=== PATIENT | female | born 1950 | race Two or more races ===

== ENCOUNTER 2023-12-23 13:37 | Emergency (ER) | payer SELFPAY ==
[~2023-12-23] VITALS: Ht 160 cm; Wt 84.3 kg
[2023-12-23 13:56] LABS: Urine Bacteria None Seen /hpf (None Seen)
[2023-12-23 14:11] LABS: Urine Blood Negative /uL (Negative); Urine Clarity Clear (Clear); Urine Color Yellow (Yellow); Urine Protein, UAD Negative (Negative); Urine Specific Gravity 1.025 (1.001-1.035); Urine Urobilinogen Normal (Negative); Urine WBC 3 /hpf (0 - 5); Urine pH 5.5 (5.0-9.0)
[2023-12-23 14:16] LABS: Basophils # (auto) 0.1 10 ^3/uL (0-0.2); Basophils % (auto) 0.6 % (0.0-2.0); Eosinophils # (auto) 0.1 10 ^3/uL (0-0.8); Eosinophils % (auto) 1.2 % (0.0-7.0); Hematocrit 41.6 % (36.0-46.0); Lymphocytes # (auto) 2.9 10 ^3/uL (0.4-5.4); Lymphocytes % (auto) 32.1 % (10.0-50.0); Mean Corpuscular Hemoglobin 28.8 pg (28.0-32.0); Mean Corpuscular Hgb Conc. 33.7 g/dL (32.0-36.0); Mean Corpuscular Volume 85.4 fL (80.0-100.0); Monocytes # (auto) 0.8 10 ^3/uL (0-1.3); Monocytes % (auto) 8.9 % (0.0-12.0); Neutrophils # (auto) 5.2 10 ^3/uL (1.6-8.6); Neutrophils % (auto) 57.2 % (37.0-80.0); Red Blood Cells 4.88 10^6/uL (4.0-5.20); Red Cell Distribution Width 16.9 % (11.8-14.3); White Blood Cell 9.1 10^3/uL (4.4-10.8)
[2023-12-23] MEDS: ACETAMINOPHEN 325 MG TAB PO ONE (14:23)
[2023-12-23] MEDS: KETOROLAC TROMETH 30 MG/ML 1ML VIAL IM ONE (14:23)
[2023-12-23] MEDS: LOPERAMIDE HCL 2 MG CAP/TAB PO ONE (14:23)
[2023-12-23] MEDS: LIDOCAINE VISCOUS 2% 15ML UD PO ONE (14:23)
[2023-12-23] MEDS: PANTOPRAZOLE 40 MG TAB PO ONE (14:24)
[2023-12-23] MEDS: FAMOTIDINE 20 MG TAB PO ONE (14:24)
[2023-12-23 14:27] LABS: Anion Gap 11 (5-15); Carbon Dioxide 22 mmol/L (20-30); Chloride 108 mmol/L (98-107); Potassium 4.3 mmol/L (3.5-5.1); Sodium 141 mmol/L (136-145)
[2023-12-23 14:28] LABS: Calcium 9.6 mg/dL (8.7-10.4)
[2023-12-23 14:33] LABS: BUN/Creatinine Ratio 17.9 (10.0-20.0); Blood Urea Nitrogen 15 mg/dL (9-23); Glucose 92 mg/dL (74-106)
[2023-12-23] MEDS ORDERED: FAMO20TA10 PO (15:05)
[2023-12-23] MEDS ORDERED: LIDO2SOL26 MT (15:05)
[2023-12-23] MEDS ORDERED: LOPE-20 PO (15:05)
[2023-12-23 16:21] VITALS: BP 104/69; PULSE 77; RESP 18; TEMP 97.9; O2SAT 95
== END 2023-12-23 16:23 | disposition home or self-care (01) ==
LOC: ER 13:37
DX: A05.9 Bacterial foodborne intoxication, unspecified (principal); R19.7 Diarrhea, unspecified; K21.9 Gastro-esophageal reflux disease without esophagitis; Z90.710 Acquired absence of both cervix and uterus; Z79.899 Other long term (current) drug therapy
CPT/HCPCS: 36415; 80048; 81001; 83690; 85025; 96372; 99284; J1885